=== PATIENT | female | born 1995 | race Asian ===

== ENCOUNTER 2022-04-29 08:13 | Outpatient (CLI) | payer BC | END 2022-04-29 08:14 | disposition home or self-care (01) | LOC: NM 08:13 | PROVIDERS: ATTEND Internal Medicine Endocrinology, Diabetes & Metabolism | DX: E05.90 Thyrotoxicosis, unspecified without thyrotoxic crisis or storm (principal); E05.00 Thyrotoxicosis with diffuse goiter without thyrotoxic crisis or storm | CPT/HCPCS: 78014; A9516 ==

== ENCOUNTER 2022-05-20 12:44 | Outpatient (CLI) | payer BC ==
[2022-05-20 13:15] LABS: BHCG - Serum Negative (NEGATIVE)
[2022-05-20 13:16] LABS: Pregs Control Background? CLEAR/WHITE (CLR/WHITE); Pregs Control Bar Appear? YES (CONTROL BAR)
== END 2022-05-20 12:45 | disposition home or self-care (01) ==
LOC: NM 12:44
PROVIDERS: ATTEND Internal Medicine Endocrinology, Diabetes & Metabolism
DX: Z32.00 Encounter for pregnancy test, result unknown (principal); E05.00 Thyrotoxicosis with diffuse goiter without thyrotoxic crisis or storm
CPT/HCPCS: 79005; 84703; A9517